=== PATIENT | female | born 1950 | race Caucasian/White ===

== ENCOUNTER 2018-02-28 14:26 | Inpatient (IN) ==
[2018-02-28 15:56] LABS: Basophils # 0.1 10*3/uL (0.0-0.2); Basophils % 0.7 % (0.0-0.8); Eosinophils # 0.1 10*3/uL (0.0-0.87); Eosinophils % 0.9 % (0.00-10.9); Hematocrit 50.7 VOL% (35.7-47.0); Hemoglobin 16.9 GM/DL (12.0-16.0); Immature Granulocytes % 0.4 %; Immature Granulocytes Absolute 0.05 #; Lymphocytes # 2.5 10*3/uL (1.4-4.0); Lymphocytes % 18.7 % (21.3-54.2); Mean Corpuscular HGB Conc 33.3 GM/DL (32-36); Mean Corpuscular Hemoglobin 33 PG (27-34); Mean Corpuscular Volume 97.5 FL (87-102); Monocytes # 1.2 10*3/uL (0.11-0.8); Neutrophils # 9.4 10*3/uL (1.4-7.4); Neutrophils % 70.3 % (38.7-73.9); Platelet Count 252 T/CUMM (130-400); Red Cell Distribution Width 12.8 % (9.3-17.3); White Blood Count 13.4 T/CUMM (4-12)
[2018-02-28 16:00] LABS: Apearance,Urine Slightly Hazy (Clear); Bilirubin,Urine Negative (Negative); Blood, Urine Negative (Negative); Glucose,Urine (UA) Negative (Negative); Ketones,Urine 5 mg/dL (Negative); Mucus,Urine Few /LPF (Occasional); Nitrite,Urine Negative (Negative); Protein,Urine 30 MG/DL; RBC,Urine 1 /HPF (0-4); Squamous Epithelial Cell,Urine Occasional /HPF (0-10); Urine Color Amber (Yellow); Urine Specific Gravity 1.027 (1.001-1.035); WBC,Urine 1 /HPF (0-6)
[2018-02-28 16:29] LABS: Albumin 4.3 G/DL (3.4-5.0); Bilirubin,Total 0.9 MG/DL (0.2-1.0); Osmolality,Calculated 277.5 MOS/KG (273-304); Potassium 3.7 MMOL/L (3.5-5.1); Total Protein 8.1 G/DL (6.4-8.3)
[2018-02-28] MEDS ORDERED: SODIUM CHLORIDE 0.9% 1,000 ML IV STA (16:41)
[2018-02-28] MEDS ORDERED: ONDANSETRON 4 MG/2 ML VIAL IV STA (16:41)
[2018-02-28] MEDS ORDERED: ONDANSETRON 4 MG/2 ML VIAL ONE (16:44)
[2018-02-28] MEDS ORDERED: metroNIDAZOLE INJ 500 MG in PREMIX 1 EACH IV STA (18:42)
[2018-02-28] MEDS ORDERED: LEVOFLOXACIN INJ 750 MG in PREMIX 1 EACH IV STA (18:42)
[2018-02-28] MEDS ORDERED: LEVOFLOXACIN INJ 0 ML IV ONE (18:57)
[2018-02-28] MEDS ORDERED: HYDROmorphone 2 MG/1 ML VIAL IV PRN (20:42)
[2018-02-28] MEDS: DEXTROSE 5% NACL 0.45% 1,000 ML IV SCH (21:24)
[2018-02-28] MEDS: metroNIDAZOLE INJ 500 MG in PREMIX 1 EACH IV SCH (21:25)
[2018-03-01] MEDS: metroNIDAZOLE INJ 500 MG in PREMIX 1 EACH IV SCH ×3 (04:39→21:29)
[2018-03-01] MEDS: MORPHINE 4 MG/1 ML VIAL IV PRN ×3 (04:49→22:30)
[2018-03-01] MEDS: ONDANSETRON 4 MG/2 ML VIAL IV PRN ×4 (04:50→22:31)
[2018-03-01] MEDS: DEXTROSE 5% NACL 0.45% 1,000 ML IV SCH ×3 (06:46→21:30)
[2018-03-01] MEDS ORDERED: fentaNYL 100 MCG/2 ML VIAL IV ONE (14:38)
[2018-03-01] MEDS ORDERED: DIAZEPAM 5 MG TABLET PO ONE (14:38)
[2018-03-01] MEDS ORDERED: MIDAZOLAM 2 MG/2 ML VIAL IV ONE (14:38)
[2018-03-01] MEDS ORDERED: fentaNYL 100 MCG/2 ML VIAL ONE (15:47)
[2018-03-01] MEDS ORDERED: MIDAZOLAM 2 MG/2 ML VIAL ONE (15:47)
[2018-03-01] MEDS: traMADol 50 MG TABLET PO PRN (16:57)
[2018-03-01] MEDS: PANTOPRAZOLE 40 MG TABLET PO SCH (16:58)
[2018-03-01] MEDS: LEVOFLOXACIN INJ 750 MG in PREMIX 1 EACH IV SCH (18:38)
[2018-03-02] MEDS: DEXTROSE 5% NACL 0.45% 1,000 ML IV SCH ×3 (04:40→23:36)
[2018-03-02] MEDS: metroNIDAZOLE INJ 500 MG in PREMIX 1 EACH IV SCH ×3 (04:41→20:15)
[2018-03-02 05:37] LABS: Basophils % 0.4 % (0.0-0.8); Eosinophils % 0.1 % (0.00-10.9); Hematocrit 40.3 VOL% (35.7-47.0); Hemoglobin 13.1 GM/DL (12.0-16.0); Immature Granulocytes % 0.4 %; Immature Granulocytes Absolute 0.04 #; Lymphocytes # 1.7 10*3/uL (1.4-4.0); Lymphocytes % 17.9 % (21.3-54.2); Mean Corpuscular HGB Conc 32.5 GM/DL (32-36); Mean Corpuscular Hemoglobin 32 PG (27-34); Mean Corpuscular Volume 99.8 FL (87-102); Mean Platelet Volume 11.2 FL (9.6-12.0); Monocytes # 0.8 10*3/uL (0.11-0.8); Monocytes % 8.1 % (1.7-12.7); Neutrophils # 6.8 10*3/uL (1.4-7.4); Neutrophils % 73.1 % (38.7-73.9); Platelet Count 201 T/CUMM (130-400); Red Blood Count 4.04 MC/CUMM (3.8-5.5); Red Cell Distribution Width 12.8 % (9.3-17.3); White Blood Count 9.4 T/CUMM (4-12)
[2018-03-02 06:03] LABS: Calcium 8.2 MG/DL (8.5-10.1); Osmolality,Calculated 280.3 MOS/KG (273-304); Potassium 3.6 MMOL/L (3.5-5.1)
[2018-03-02] MEDS: PANTOPRAZOLE 40 MG TABLET PO SCH (09:24)
[2018-03-02] MEDS: ONDANSETRON 4 MG/2 ML VIAL IV PRN ×3 (09:28→21:33)
[2018-03-02] MEDS: traMADol 50 MG TABLET PO PRN ×2 (09:28→15:12)
[2018-03-02] MEDS: MORPHINE 4 MG/1 ML VIAL IV PRN (21:28)
[2018-03-02] MEDS: LEVOFLOXACIN INJ 750 MG in PREMIX 1 EACH IV SCH (21:35)
[2018-03-03] MEDS: DEXTROSE 5% NACL 0.45% 1,000 ML IV SCH ×3 (01:11→19:11)
[2018-03-03] MEDS: metroNIDAZOLE INJ 500 MG in PREMIX 1 EACH IV SCH ×3 (05:31→21:45)
[2018-03-03 06:43] LABS: Basophils % 0.4 % (0.0-0.8); Eosinophils % 0.4 % (0.00-10.9); Hematocrit 38.9 VOL% (35.7-47.0); Hemoglobin 12.8 GM/DL (12.0-16.0); Immature Granulocytes % 0.5 %; Immature Granulocytes Absolute 0.04 #; Lymphocytes # 1.5 10*3/uL (1.4-4.0); Lymphocytes % 19.7 % (21.3-54.2); Mean Corpuscular HGB Conc 32.9 GM/DL (32-36); Mean Corpuscular Hemoglobin 33 PG (27-34); Mean Corpuscular Volume 98.7 FL (87-102); Monocytes # 0.7 10*3/uL (0.11-0.8); Monocytes % 9.9 % (1.7-12.7); Neutrophils # 5.1 10*3/uL (1.4-7.4); Neutrophils % 69.1 % (38.7-73.9); Platelet Count 206 T/CUMM (130-400); Red Blood Count 3.94 MC/CUMM (3.8-5.5); Red Cell Distribution Width 12.8 % (9.3-17.3); White Blood Count 7.5 T/CUMM (4-12)
[2018-03-03 07:13] LABS: Calcium 8.2 MG/DL (8.5-10.1); Osmolality,Calculated 275.4 MOS/KG (273-304); Potassium 3.7 MMOL/L (3.5-5.1)
[2018-03-03] MEDS: PANTOPRAZOLE 40 MG TABLET PO SCH (09:58)
[2018-03-03] MEDS: ONDANSETRON 4 MG/2 ML VIAL IV PRN (11:38)
[2018-03-03] MEDS: MORPHINE 4 MG/1 ML VIAL IV PRN (11:38)
[2018-03-03] MEDS: LEVOFLOXACIN INJ 750 MG in PREMIX 1 EACH IV SCH (17:26)
[2018-03-04 03:59] LABS: Basophils # 0.1 10*3/uL (0.0-0.2); Basophils % 0.6 % (0.0-0.8); Eosinophils # 0.1 10*3/uL (0.0-0.87); Eosinophils % 1.2 % (0.00-10.9); Hematocrit 38.2 VOL% (35.7-47.0); Hemoglobin 12.7 GM/DL (12.0-16.0); Immature Granulocytes % 0.2 %; Immature Granulocytes Absolute 0.02 #; Lymphocytes # 1.6 10*3/uL (1.4-4.0); Lymphocytes % 19.6 % (21.3-54.2); Mean Corpuscular HGB Conc 33.2 GM/DL (32-36); Mean Corpuscular Hemoglobin 33 PG (27-34); Mean Corpuscular Volume 98.2 FL (87-102); Monocytes # 0.9 10*3/uL (0.11-0.8); Monocytes % 11.3 % (1.7-12.7); Neutrophils # 5.5 10*3/uL (1.4-7.4); Neutrophils % 67.1 % (38.7-73.9); Platelet Count 227 T/CUMM (130-400); Red Blood Count 3.89 MC/CUMM (3.8-5.5); Red Cell Distribution Width 12.6 % (9.3-17.3); White Blood Count 8.2 T/CUMM (4-12)
[2018-03-04] MEDS: metroNIDAZOLE INJ 500 MG in PREMIX 1 EACH IV SCH (04:22)
[2018-03-04 04:23] LABS: Calcium 7.9 MG/DL (8.5-10.1); Osmolality,Calculated 279.1 MOS/KG (273-304); Potassium 3.7 MMOL/L (3.5-5.1)
[2018-03-04 07:03] VITALS: BP 143/76
[2018-03-04] MEDS: PANTOPRAZOLE 40 MG TABLET PO SCH (09:39)
== END 2018-03-04 11:10 | disposition home or self-care (01) | DRG 392 ==
LOC: N.ED 14:26 → N.EDINP 18:52 → N.3E 20:21 → N.EDINP 20:21
PROVIDERS: ADMIT Surgery; ATTEND Surgery